=== PATIENT | male | born 1975 | race African-American/Black ===

== ENCOUNTER 2024-11-12 15:36 | Emergency (ER) | payer MEDICAID ==
[~2024-11-12] VITALS: Ht 188 cm; Wt 79.4 kg
[~2024-11-12 15:36] MED LIST: SULF1TAB48 PO
[2024-11-12 15:56] VITALS: TEMP 97
[2024-11-12] MEDS ORDERED: BUPR8TAB4 SL (16:32)
[2024-11-12] MEDS ORDERED: BUPRENORPHINE HCL 8 MG TAB.SUBL SL ONE (16:38)
[2024-11-12] MEDS: BUPRENORPHINE HCL 8 MG TAB.SUBL SL ONE (16:42)
[2024-11-12 18:01] VITALS: BP 110/70; O2SAT 98
== END 2024-11-12 17:35 | disposition home or self-care (01) ==
LOC: ER 15:47
DX: F11.23 Opioid dependence with withdrawal (principal); F41.9 Anxiety disorder, unspecified; F19.10 Other psychoactive substance abuse, uncomplicated; Z59.00 Homelessness unspecified